=== PATIENT | female | born 1970 | race American Indian/Alaskan Native ===

== ENCOUNTER 2021-01-19 20:33 | Inpatient (IN) | payer OTHER ==
--- NOTE | 2021-01-19 21:48 | Event Note ---
ED Screening Note ED Screening Note: EPIGASTRIC AND RUQ PAIN ETOH DAILY This initial assessment/diagnostic orders/clinical plan/treatment(s) is/are subject to change based on patients health status, clinical progression and re- assessment by fellow clinical providers in the ED. Further treatment and workup at subsequent clinical providers discretion. Patient/guardian urged not to elope from the ED as their condition may be serious if not clinically assessed and managed. Initial orders include: LABS UA
[2021-01-19 22:07] LABS: Basophils # (Auto) 0.1 K/mm3 (0.0-0.1); Basophils % (Auto) 0.8 % (0.0-1.8); Eosinophils # (Auto) 0.1 K/mm3 (0.0-0.4); Eosinophils % (Auto) 1.5 % (0.0-4.3); Hematocrit 43.5 % (30.3-42.9); Hemoglobin 15.4 gm/dl (10.1-14.3); Lymphocytes # (Auto) 2.3 K/mm3 (1.2-5.4); Lymphocytes % (Auto) 29.5 % (13.4-35.0); Mean Corpuscular HGB Conc 35 % (30-34); Mean Corpuscular Volume 101 fl (79-97); Monocytes # (Auto) 0.5 K/mm3 (0.0-0.8); Monocytes % (Auto) 6.4 % (0.0-7.3); Platelet Count 339 K/mm3 (140-440); Red Blood Count 4.32 M/mm3 (3.65-5.03); Red Cell Distribution Width 12.8 % (13.2-15.2)
[2021-01-19] MEDS ORDERED: SODIUM CHLORIDE 0.9% 1000 ML 1,000 ML IV ONE (22:08)
[2021-01-19 22:26] LABS: Alanine Aminotransferase 66 units/L (7-56); Albumin 4.7 g/dL (3.9-5); Blood Urea Nitrogen 6 mg/dL (7-17); Calcium 9.1 mg/dL (8.4-10.2); Hemolysis Index 12
[2021-01-19 22:28] LABS: BUN/Creatinine Ratio 10; Bilirubin,Direct < 0.2 mg/dL (0-0.2)
[2021-01-19] MEDS ORDERED: DICYCLOMINE 20 MG/2 ML INJ IM ONE (23:03)
[2021-01-19] MEDS ORDERED: fentaNYL 100 MCG/2 ML INJ IV ONE (23:03)
[2021-01-19] MEDS ORDERED: ONDANSETRON 4 MG/2 ML INJ IV ONE (23:03)
--- NOTE | 2021-01-19 23:07 | Emergency Department Report ---
HPI - General Chief Complaint: Abdominal Pain Time Seen by Provider: 01/19/21 21:45 - HPI HPI: Room 22 The patient is a 50-year-old female present with a chief complaint of abdominal pain. Patient states for the past 2 weeks she has had intermittent epigastric abdominal pain rating to her back. Patient denies nausea/vomiting or diarrhea. Patient denies history of fever dysuria or hematuria. Patient gives her pain a score of 8/10. ED Past Medical Hx - Past Medical History Previous Medical History?: Yes Additional medical history: hypoglycemia - Surgical History Past Surgical History?: No - Family History Family history: no significant - Social History Smoking Status: Current Every Day Smoker Substance Use Type: None (Denies illicit drug use), Alcohol (Drinks beer 6 times a week) - Medications Home Medications: Home Medications Medication Instructions Recorded Confirmed Last Taken Type Cyclobenzaprine [Flexeril 10mg] 10 mg PO TID PRN #30 tablet 10/19/14 Unknown Rx HYDROcodone/APAP 5-325 [[place] 1 each PO Q6HR PRN #20 tablet 10/19/14 Unknown Rx 5/325] Ibuprofen [Motrin] 600 mg PO Q8H PRN #40 tablet 10/19/14 Unknown Rx ED Review of Systems ROS: Stated complaint: STOMACH PAIN Other details as noted in HPI Constitutional: denies: fever Eyes: denies: eye pain ENT: denies: throat pain Respiratory: no symptoms reported Cardiovascular: denies: chest pain Endocrine: no symptoms reported Gastrointestinal: abdominal pain. denies: nausea, vomiting, diarrhea Genitourinary: denies: dysuria, hematuria Musculoskeletal: back pain Neurological: denies: headache Physical Exam - Physical Exam Vital Signs: Vital Signs 01/19/21 21:42 Temperature 98.2 F Pulse Rate 110 H Respiratory 18 Rate Blood Pressure 141/93 O2 Sat by Pulse 98 Oximetry Physical Exam: GENERAL: The patient is well-developed well-nourished female lying on stretcher not appearing to be in acute distress. [] HEENT: Normocephalic. Atraumatic. Extraocular motions are intact. Patient has moist mucous membranes. NECK: Supple. Trachea midline CHEST/LUNGS: Clear to auscultation. There is no respiratory distress noted. HEART/CARDIOVASCULAR: Regular. There is no tachycardia. There is no gallop rub or murmur. ABDOMEN: Abdomen is soft, with tenderness to palpation in epigastric region only. There is no rebound or guarding. Patient has normal bowel sounds. There is no abdominal distention. SKIN: There is no rash. There is no edema. There is no diaphoresis. NEURO: The patient is awake, alert, and oriented. The patient is cooperative. The patient has no focal neurologic deficits. The patient has normal speech MUSCULOSKELETAL: There is no evidence of acute injury. ED Course Vital Signs 01/19/21 21:42 Temperature 98.2 F Pulse Rate 110 H Respiratory 18 Rate Blood Pressure 141/93 O2 Sat by Pulse 98 Oximetry ED Medical Decision Making - Lab Data Result diagrams: 01/19/21 21:56 01/19/21 21:56 - Radiology Data Radiology results: report reviewed (CT abdomen pelvis), image reviewed (CT abdomen pelvis) [facility] [address] [place] [address] Cat Scan Report Signed Patient: LAUREN LYONS MR#: [id number] : 1970 Acct:[id number] Age/Sex: 50 / F ADM Date: 01/19/21 Loc: ED Attending Dr: Ordering Physician: JOSE FIELDS MD Date of Service: 01/19/21 Procedure(s): CT abdomen pelvis w con Accession Number(s): [id number] cc: JOSE FIELDS MD CT abdomen pelvis w con INDICATION / CLINICAL INFORMATION: Epigastric abdominal pain radiating to RIGHT sided back. TECHNIQUE: Axial CT imaging of abdomen and pelvis was obtained with IV contrast. Coronal and sagittal reformatted imaging obtained and reviewed. All CT scans at this location are performed using CT dose reduction for ALARA by means of automated exposure control. COMPARISON: None available. FINDINGS: CT abdomen with IV contrast demonstrates mild hepatic steatosis. The liver is otherwise unremarkable. Spleen, kidneys adrenal glands, and gallbladder all appear grossly unremarkable. No biliary dilatation. The pancreatic head is abnormal. The pancreatic head is mildly enlarged and there is surrounding inflammatory change. The appearance is consistent with acute pancreatitis. The pancreatic parenchyma enhances normally. Inflammation extends to involve the descending duodenum. CT pelvis with contrast demonstrates enlarged lobulated uterus consistent with uterine fibroids. There are a few calcifications within the uterine parenchyma. A 3 cm l eft ovarian cyst is noted. A normal appendix is present in the right lower quadrant. GI tract is normal. No free fluid. Visualized lung bases are clear. No acute significant osseous abnormality. IMPRESSION: 1. Findings consistent with acute pancreatitis primarily involving the pancreatic head region. No free fluid or peripancreatic abnormal fluid collection. 2. Mild hepatic steatosis. 3. Mildly enlarged myomatous uterus. 4. 3 cm left ovarian cyst. Signer Name: Hallie Danielle MD Signed: 01/20/2021 12:51 AM Workstation Name: [id number] Transcribed By: Dictated By: Hallie Danielle MD Electronically Authenticated By: Hallie Danielle MD Signed Date/Time: 01/20/2150 DD/ TD/TT: Print Cancel - Differential Diagnosis Peptic ulcer disease, gastritis, pancreatitis, biliary pancreatitis, cholel Critical care attestation.: If time is entered above; I have spent that time in minutes in the direct care of this critically ill patient, excluding procedure time. ED Disposition Clinical Impression: Acute abdominal pain, Acute pancreatitis Disposition: OP ADMIT IP TO THIS HOSP Is pt being admited?: Yes Does the pt Need Aspirin: No Condition: Fair Instructions: Abdominal Pain (ED) Time of Disposition: 01:27 (Hospitalist notified (Dr Elizabeth))
[2021-01-19 23:39] LABS: Bacteria,Urine 1+ /HPF (Negative); Bilirubin,Urine NEG (Negative); Blood,Urine SM (Negative); Color,Urine Straw (Yellow); Mucus,Urine FEW /HPF; Protein,Urine <15 mg/dL mg/dL (Negative); Urobilinogen,Urine < 2.0 mg/dL (<2.0)
[2021-01-19 23:51] LABS: HCG Qualitative,Urine Negative (Negative)
--- NOTE | 2021-01-20 00:56 | Cat Scan Report ---
CT abdomen pelvis w con INDICATION / CLINICAL INFORMATION: Epigastric abdominal pain radiating to RIGHT sided back. TECHNIQUE: Axial CT imaging of abdomen and pelvis was obtained with IV contrast. Coronal and sagittal reformatte d imaging obtained and reviewed. All CT scans at this location are performed using CT dose reduction for ALARA by means of automated exposure control. COMPARISON: None available. FINDINGS: CT abdomen with IV contrast demonstrates mild hepatic steatosis. The liver is otherwise unremarkable. Spleen, kidneys adrenal glands, and gallbladder all appear grossly unremarkable. No biliary dilatati on. The pancreatic head is abnormal. The pancreatic head is mildly enlarged and there is surrounding infl ammatory change. The appearance is consistent with acute pancreatitis. The pancreatic parenchyma enha nces normally. Inflammation extends to involve the descending duodenum. CT pelvis with contrast demonstrates enlarged lobulated uterus consistent with uterine fibroids. Ther e are a few calcifications within the uterine parenchyma. A 3 cm left ovarian cyst is noted. A normal appendix is present in the right lower quadrant. GI tract is normal. No free fluid. Visualized lung bases are clear. No acute significant osseous abnormality. IMPRESSION: 1. Findings consistent with acute pancreatitis primarily involving the pancreatic head region. No cynthia e fluid or peripancreatic abnormal fluid collection. 2. Mild hepatic steatosis. 3. Mildly enlarged myomatous uterus. 4. 3 cm left ovarian cyst. Signer Name: Hallie Daneille MD Signed: 01/20/2021 12:51 AM Workstation Name: [id number]
[2021-01-20] MEDS ORDERED: ACETAMINOPHEN 325 MG TAB PO PRN (01:45)
[2021-01-20] MEDS ORDERED: ONDANSETRON 4 MG/2 ML INJ IV PRN (01:45)
--- NOTE | 2021-01-20 01:56 | History and Physical Report ---
History of Present Illness Date of examination: 01/20/21 Date of admission: 01/20/21 01:27 Chief complaint: Abdominal pain History of present illness: 50-year-old -[place] female with no significant past medical history presenting to the emergency room today complaining of abdominal pain. Pain is said to be intermittent and has been going on for the past 2 weeks. Pain is more in the epigastric region. No no relieving or exacerbating factor. Patient denies any nausea vomiting, denies any diarrhea denies any constipation. She denies any fever or chills, no chest pain or shortness of breath. She denies any dysuria or hematuria. On a scale of 10 pain was about 8/10 in severity. Patient admits that she drinks alcohol almost on a daily basis. She is also a current daily smoker. Work-up in the emergency room today reveals elevated lipase of 110. CT of the abdomen was also consistent with acute pancreatitis primarily involving the pancreatic head. There is also mild hepatic steatosis, mildly enlarged myomatous uterus, 3 cm left ovarian cyst. Patient has been admitted with acute pancreatitis. Past History Past Medical History: other (Hypoglycemia) Past Surgical History: No surgical history Social history: smoking (Current daily smoker), alcohol abuse (Drinks alcohol almost on a daily basis) Family history: no significant family history Medications and Allergies Allergies Allergy/AdvReac Type Severity Reaction Status Date / Time No Known Allergies Allergy Unverified 10/19/14 10:11 Home Medications Medication Instructions Recorded Confirmed Last Taken Type Cyclobenzaprine [Flexeril 10mg] 10 mg PO TID PRN #30 tablet 10/19/14 Unknown Rx HYDROcodone/APAP 5-325 [[place] 1 each PO Q6HR PRN #20 tablet 10/19/14 Unknown Rx 5/325] Ibuprofen [Motrin] 600 mg PO Q8H PRN #40 tablet 10/19/14 Unknown Rx Active Meds: Active Medications Acetaminophen (Acetaminophen 325 Mg Tab) 650 mg PO Q4H PRN PRN Reason: Pain MILD(1-3)/Fever >100.5/MCDANIELS Enoxaparin Sodium (Enoxaparin 40 Mg/0.4 Ml Inj) 40 mg SUB-Q QDAY@2200 ROSA ISELA; Protocol Sodium Chloride (Nacl 0.9% 1000 Ml) 1,000 mls @ 150 mls/hr IV DIRECT ROSA ISELA Morphine Sulfate (Morphine 2 Mg/1 Ml Inj) 2 mg IV Q4H PRN PRN Reason: Pain, Moderate (4-6) Ondansetron HCl (Ondansetron 4 Mg/2 Ml Inj) 4 mg IV Q8H PRN PRN Reason: Nausea And Vomiting Sodium Chloride (Sodium Chloride 0.9% 10 Ml Flush Syringe) 10 ml IV BID ROSA ISELA Sodium Chloride (Sodium Chloride 0.9% 10 Ml Flush Syringe) 10 ml IV PRN PRN PRN Reason: LINE FLUSH Review of Systems Constitutional: no fever, no chills Ears, nose, mouth and throat: no nasal congestion, no sore throat Cardiovascular: no chest pain, no palpitations Respiratory: no cough, no shortness of breath Gastrointestinal: abdominal pain, no nausea, no vomiting, no diarrhea, no constipation, no heartburn Genitourinary Female: no pelvic pain, no flank pain, no dysuria, no hematuria Musculoskeletal: no neck pain, no low back pain Integumentary: no rash, no pruritis Neurological: no headaches, no confusion Psychiatric: no anxiety, no depression Endocrine: no polyphagia, no polydipsia, no polyuria, no nocturia Exam - Constitutional Vitals: Temp Pulse Resp BP Pulse Ox 98.2 F 110 H 18 141/93 98 01/19/21 21:42 01/19/21 21:42 01/19/21 21:42 01/19/21 21:42 01/19/21 21:42 General appearance: Present: no acute distress, well-nourished - EENT Eyes: Present: PERRL, EOM intact. Absent: scleral icterus ENT: hearing intact, clear oral mucosa, dentition normal - Neck Neck: Present: supple, normal ROM - Respiratory Respiratory effort: normal Respiratory: bilateral: CTA - Cardiovascular Rhythm: regular Heart Sounds: Present: S1 & S2. Absent: gallop, systolic murmur, diastolic mu rmur, rub, click - Extremities Extremities: no ischemia, pulses intact, pulses symmetrical, No edema, normal temperature, normal color, Full ROM Peripheral Pulses: within normal limits - Abdominal General gastrointestinal: Present: soft, tender (Mild epigastric tenderness, no guarding and no rebound tenderness), non-distended, normal bowel sounds - Integumentary Integumentary: Present: clear, warm, dry. Absent: rash - Musculoskeletal Musculoskeletal: strength equal bilaterally - Psychiatric Psychiatric: appropriate mood/affect, intact judgment & insight, memory intact, cooperative - Neurologic Neurologic: CNII-XII intact, no focal deficits, moves all extremities Results - Labs CBC & Chem 7: 01/19/21 21:56 06 21:56 Labs: Abnormal lab results 01/19/21 06 Range/Units 21:56 21:56 Hgb 15.4 H (10.1-14.3) gm/dl Hct 43.5 H (30.3-42.9) % MCV 101 H (79-97) fl MCH 36 H (28-32) pg MCHC 35 H (30-34) % RDW 12.8 L (13.2-15.2) % Sodium 136 L (137-145) mmol/L Chloride 97.9 L (98-107) mmol/L Carbon Dioxide 21 L (22-30) mmol/L BUN 6 L (7-17) mg/dL AST 53 H (5-40) units/L ALT 66 H (7-56) units/L Lipase 110 H (13-60) units/L Assessment and Plan - Patient Problems (1) Acute pancreatitis Current Visit: Yes Status: Acute Plan to address problem: Patient admitted and placed on IV fluid and IV analgesic medication. Patient was placed n.p.o. meanwhile. Consult placed to gastroenterology for evaluation and recommendations. (2) Acute abdominal pain Current Visit: Yes Status: Acute Plan to address problem: Probably secondary to the pancreatitis. We will continue on IV analgesic medication. (3) Alcohol abuse Current Visit: Yes Status: Acute Plan to address problem: Patient counseled on quitting alcohol abuse. We will place on CIWA protocol. (4) Tobacco abuse Current Visit: Yes Status: Acute Plan to address problem: Patient counseled on quitting tobacco abuse. We will offer nicotine patch as needed. (5) DVT prophylaxis Current Visit: Yes Status: Acute Plan to address problem: Patient placed on subcutaneous Lovenox. (6) Full code status Current Visit: Yes Status: Acute Plan to address problem: Patient is a full code.
[2021-01-20] MEDS: SODIUM CHLORIDE 0.9% 1000 ML 1,000 ML IV SCH ×3 (03:27→17:45)
[2021-01-20] MEDS: MORPHINE 2 MG/1 ML INJ IV PRN ×5 (03:28→21:36)
--- NOTE | 2021-01-20 12:31 | Event Note ---
Date: 01/20/21 Patient seen and examined continue supportive care. No new complaints at this time. Still with abdominal pain. 02/19 in intensity.
--- NOTE | 2021-01-20 13:53 | Gastroenterology Consultation ---
History of Present Illness - Reason for Consult Consult date: 01/20/21 Pancreatitis Requesting physician: JUAN LI - History of Present Illness This is a pleasant 50-year-old female no significant medical history presents for severe epigastric pain she reports persistent progressing over the last 2 weeks. The pain is currently constant epigastric severe radiating to the back associated with nausea Patient does report drinking significant amounts of alcohol she reports a 30 pack of beer cans will only last for 3 days Patient denies history of pancreatitis in the past denies alcohol related disease in the past She does report smoking daily Patient's was present in the bed with her. Obtained/updated/reviewed patient's current medications Past History Past Medical History: other (Hypoglycemia) Past Surgical History: No surgical history Social history: smoking (Current daily smoker), alcohol abuse (Drinks alcohol almost on a daily basis) Family history: no significant family history Medications and Allergies Allergies Allergy/AdvReac Type Severity Reaction Status Date / Time No Known Allergies Allergy Unverified 10/19/14 10:11 Home Medications Medication Instructions Recorded Confirmed Last Taken Type Cyclobenzaprine [Flexeril 10mg] 10 mg PO TID PRN #30 tablet 10/19/14 01/20/21 Unknown Rx HYDROcodone/APAP 5-325 [[place] 1 each PO Q6HR PRN #20 tablet 10/19/14 01/20/21 Unknown Rx 5/325] Ibuprofen [Motrin] 600 mg PO Q8H PRN #40 tablet 10/19/14 01/20/21 01/11/21 Rx Active Meds: Active Medications Acetaminophen (Acetaminophen 325 Mg Tab) 650 mg PO Q4H PRN PRN Reason: Pain MILD(1-3)/Fever >100.5/MCDANIELS Enoxaparin Sodium (Enoxaparin 40 Mg/0.4 Ml Inj) 40 mg SUB-Q QDAY@2200 ROSA ISELA; Protocol Sodium Chloride (Nacl 0.9% 1000 Ml) 1,000 mls @ 150 mls/hr IV DIRECT ROSA ISELA Last Admin: 01/20/21 10:29 Dose: 150 mls/hr Documented by: Morphine Sulfate (Morphine 2 Mg/1 Ml Inj) 2 mg IV Q4H PRN PRN Reason: Pain, Moderate (4-6) Last Admin: 01/20/21 13:28 Dose: 2 mg Documented by: Ondansetron HCl (Ondansetron 4 Mg/2 Ml Inj) 4 mg IV Q8H PRN PRN Reason: Nausea And Vomiting Sodium Chloride (Sodium Chloride 0.9% 10 Ml Flush Syringe) 10 ml IV BID ROSA ISELA Last Admin: 01/20/21 10:28 Dose: 10 ml Documented by: Sodium Chloride (Sodium Chloride 0.9% 10 Ml Flush Syringe) 10 ml IV PRN PRN PRN Reason: LINE FLUSH Review of Systems - Review of Systems All systems: negative (10 systems reviewed and negative except as mentioned above in the history of present illness) Exam - Constitutional Vital Signs: Temp Pulse Resp BP Pulse Ox 98.0 F 71 18 120/86 96 01/20/21 11:00 01/20/21 11:00 01/20/21 11:00 01/20/21 11:00 01/20/21 11:00 General appearance: no acute distress - EENT Eyes: EOM intact - Neck Neck: supple - Respiratory Respiratory effort: normal - Cardiovascular Rhythm: regular - Gastrointestinal General gastrointestinal: Present: soft, tender - Integumentary Integumentary: Present: dry - Neurologic Neurological: alert and oriented x3 - Psychiatric Psychiatric: appropriate mood/affect - Labs CBC & Chem 7: 01/19/21 21:56 01/19/21 21:56 Lab Results: Laboratory Results - last 24 hr 01/19/21 01/19/21 01/19/21 21:56 21:56 23:26 WBC 7.9 RBC 4.32 Hgb 15.4 H Hct 43.5 H MCV 101 H MCH 36 H MCHC 35 H RDW 12.8 L Plt Count 339 Lymph % (Auto) 29.5 Wilkes % (Auto) 6.4 Eos % (Auto) 1.5 Baso % (Auto) 0.8 Lymph # (Auto) 2.3 Wilkes # (Auto) 0.5 Eos # (Auto) 0.1 Baso # (Auto) 0.1 Seg Neutrophils % 61.8 Seg Neutrophils # 4.9 Sodium 136 L Potassium 4.2 Chloride 97.9 L Carbon Dioxide 21 L Anion Gap 21 BUN 6 L Creatinine 0.6 Estimated GFR > 60 BUN/Creatinine Ratio 10 Glucose 94 Calcium 9.1 Total Bilirubin 0.30 Direct Bilirubin < 0.2 Indirect Bilirubin 0.1 AST 53 H ALT 66 H Alkaline Phosphatase 124 Total Protein 7.9 Albumin 4.7 Albumin/Globulin Ratio 1.5 Lipase 110 H Urine Color Straw Urine Turbidity Clear Urine pH 5.0 Ur Specific [place] 1.003 Urine Protein <15 mg/dl Urine Glucose (UA) Neg Urine Ketones Neg Urine Blood Sm Urine Nitrite Neg Urine Bilirubin Neg Urine Urobilinogen < 2.0 Ur Leukocyte Esterase Neg Urine WBC (Auto) 2.0 Urine RBC (Auto) 3.0 U Epithel Cells (Auto) 2.0 Urine Bacteria (Auto) 1+ Urine Mucus Few Urine HCG, Qual Negative Assessment and Plan Clinically this is most consistent with acute alcohol related pancreatitis, low in the differential diagnosis is pancreatic mass, gallstone related disease, etc. based upon imaging results Continue pain management as well as aggressive hydration I discussed with the patient alcohol cessation and tobacco cessation We will continue to follow with you daily - Patient Problems (1) Acute pancreatitis Current Visit: Yes Status: Acute (2) Alcohol abuse Current Visit: Yes Status: Acute
[2021-01-20] MEDS ORDERED: ENOXAPARIN 40 MG/0.4 ML INJ SUB-Q SCH (22:00)
[2021-01-21] MEDS: SODIUM CHLORIDE 0.9% 1000 ML 1,000 ML IV SCH ×2 (01:03→09:35)
[2021-01-21 06:06] LABS: Basophils % (Auto) 0.8 % (0.0-1.8); Eosinophils # (Auto) 0.1 K/mm3 (0.0-0.4); Eosinophils % (Auto) 1.5 % (0.0-4.3); Hematocrit 38.8 % (30.3-42.9); Hemoglobin 13.2 gm/dl (10.1-14.3); Lymphocytes # (Auto) 1.8 K/mm3 (1.2-5.4); Lymphocytes % (Auto) 38.2 % (13.4-35.0); Mean Corpuscular HGB Conc 34 % (30-34); Mean Corpuscular Volume 101 fl (79-97); Monocytes # (Auto) 0.3 K/mm3 (0.0-0.8); Monocytes % (Auto) 6.3 % (0.0-7.3); Platelet Count 280 K/mm3 (140-440); Red Blood Count 3.86 M/mm3 (3.65-5.03); Red Cell Distribution Width 12.7 % (13.2-15.2)
[2021-01-21 06:16] LABS: INR 0.96 (0.87-1.13)
[2021-01-21 06:20] LABS: Alanine Aminotransferase 35 units/L (7-56); Albumin 3.9 g/dL (3.9-5); Blood Urea Nitrogen 6 mg/dL (7-17); Calcium 8.8 mg/dL (8.4-10.2); Hemolysis Index 1
[2021-01-21 06:30] LABS: BUN/Creatinine Ratio 9
[2021-01-21 06:36] VITALS: BP 125/73
--- NOTE | 2021-01-21 09:01 | Gastroenterology Progress Note ---
Assessment and Plan Clinically this is most consistent with acute alcohol related pancreatitis, patient improving rapidly I am advancing her diet From GI standpoint as long as she tolerates her diet she can be discharged with outpatient follow-up with me I reviewed with her again in detail alcohol cessation education Regarding the chest pressure may be simply gas related I recommended she walk around and see if that can move the gas and help her to feel better. I told her however if the chest pain starts worsening with exertion she should tell her itzel se immediately GI will sign off please call back if we can be of any further assistance - Patient Problems (1) Acute pancreatitis Current Visit: Yes Status: Acute (2) Alcohol abuse Current Visit: Yes Status: Acute Subjective Date of service: 01/21/21 Principal diagnosis: Pancreatitis Interval history: Patient reports her abdominal pain is continuing to improve and is now only for out of 10 Epigastric Radiating to the back She reports some gas-like chest fullness that radiates to her back this morning Objective - Constitutional Vitals: Temp Pulse Resp BP Pulse Ox 97.7 F 55 L 20 125/73 95 01/21/21 04:43 01/21/21 04:43 01/21/21 08:00 01/21/21 04:43 01/21/21 08:00 General appearance: no acute distress - EENT Eyes: EOM intact - Neck Neck: supple - Respiratory Respiratory effort: normal - Gastrointestinal General gastrointestinal: Present: soft, other (Mildly tender to palpation epigastric) - Labs CBC & Chem 7: 01/21/21 05:00 01/21/21 05:00 Labs: Laboratory Results - last 24 hr 01/21/21 01/21/21 01/21/21 05:00 05:00 05:00 WBC 4.7 RBC 3.86 Hgb 13.2 Hct 38.8 MCV 101 H MCH 34 H MCHC 34 RDW 12.7 L Plt Count 280 Lymph % (Auto) 38.2 H Butts % (Auto) 6.3 Eos % (Auto) 1.5 Baso % (Auto) 0.8 Lymph # (Auto) 1.8 Butts # (Auto) 0.3 Eos # (Auto) 0.1 Baso # (Auto) 0.0 Seg Neutrophils % 53.2 Seg Neutrophils # 2.5 PT 13.4 INR 0.96 Sodium Potassium Chloride Carbon Dioxide Anion Gap BUN Creatinine Estimated GFR BUN/Creatinine Ratio Glucose Calcium Total Bilirubin AST ALT Alkaline Phosphatase Total Protein Albumin Albumin/Globulin Ratio Lipase 117 H 01/21/21 05:00 WBC RBC Hgb Hct MCV MCH MCHC RDW Plt Count Lymph % (Auto) Butts % (Auto) Eos % (Auto) Baso % (Auto) Lymph # (Auto) Butts # (Auto) Eos # (Auto) Baso # (Auto) Seg Neutrophils % Seg Neutrophils # PT INR Sodium 138 Potassium 4.0 Chloride 103.3 Carbon Dioxide 24 Anion Gap 15 BUN 6 L Creatinine 0.7 Estimated GFR > 60 BUN/Creatinine Ratio 9 Glucose 81 Calcium 8.8 Total Bilirubin 0.50 AST 27 ALT 35 Alkaline Phosphatase 87 Total Protein 6.5 Albumin 3.9 Albumin/Globulin Ratio 1.5 Lipase
[2021-01-21] MEDS: MORPHINE 2 MG/1 ML INJ IV PRN (09:35)
--- NOTE | 2021-01-21 11:36 | Discharge Summary ---
Providers - Providers Date of Admission: 01/20/21 01:27 Attending physician: NIKKI PALACIOS MD 01/20/21 01:45 Consult to Physician [CONS] Routine Comment: Consulting Provider: BELLA VELA Physician Instructions: Reason For Exam: ACUTE PANCREATITIS Primary care physician: TREADLE CUT OFF SAW OPERATOR Hospitalization Reason for admission: abdominal pain Condition: Fair Hospital course: 50-year-old -[place]ish female with no significant past medical history presenting to the emergency room today complaining of abdominal pain. Pain is s aid to be intermittent and has been going on for the past 2 weeks. Pain is more in the epigastric region. No no relieving or exacerbating factor. Patient denies any nausea vomiting, denies any diarrhea denies any constipation. She denies any fever or chills, no chest pain or shortness of breath. She denies any dysuria or hematuria. On a scale of 10 pain was about 8/10 in severity. Patient admits that she drinks alcohol almost on a daily basis. She is also a current daily smoker. Work-up in the emergency room today reveals elevated lipase of 110. CT of the abdomen was also consistent with acute pancreatitis primarily involving the pancreatic head. There is also mild hepatic steatosis, mildly enlarged myomatous uterus, 3 cm left ovarian cyst. Patient has been admitted with acute pancreatitis. During evaluation the patient was seen by GI physician who recommended an outpatient follow-up for colon cancer screening. The patient this morning show some improvement I did have extensive discussion with her about her alcohol use and general preventive measures related to healthcare we spent about 20 minutes discussing this. She verbalized understanding. She is tolerating her diet and this morning soft GI diet. She understands to stay with his diet for few more days prior to advancing. Tobacco cessation counseling was also discussed in detail (1) Acute pancreatitis Current Visit: Yes Status: Acute Plan to address problem: Patient admitted and placed on IV fluid and IV analgesic medication. Patient was placed n.p.o. meanwhile. Consult placed to gastroenterology for evaluation and recommendations. (2) Acute abdominal pain Current Visit: Yes Status: Acute Plan to address problem: Probably secondary to the pancreatitis. We will continue on IV analgesic medication. (3) Alcohol abuse Current Visit: Yes Status: Acute Plan to address problem: Patient counseled on quitting alcohol abuse. We will place on CIWA protocol. (4) Tobacco abuse Current Visit: Yes Status: Acute Plan to address problem: Patient counseled on quitting tobacco abuse. We will offer nicotine patch as needed. Disposition: DC-01 TO HOME OR SELFCARE Final Discharge Diagnosis (Prints w/discharge instructions): Acute alcoholic pancreatitis Time spent for discharge: 35-minute Core Measure Documentation - Palliative Care Palliative Care/ Comfort Measures: Not Applicable - Core Measures Any of the following diagnoses?: none Exam - Physical Exam Narrative exam: VITAL SIGNS: Reviewed. GENERAL: The patient appears normally developed, Vital signs as documented. HEAD: No signs of head trauma. EYES: Pupils are equal. Extraocular motions intact. EARS: Hearing grossly intact. MOUTH: Oropharynx is normal. NECK: No adenopathy, no JVD. CHEST: Chest with clear breath sounds bilaterally. No wheezes, rales, or rhonchi. CARDIAC: Regular rate and rhythm. S1 and S2, without murmurs, gallops, or rubs. VASCULAR: No Edema. Peripheral pulses normal and equal in all extremities. ABDOMEN: Soft, non tender and non distended. No rebound or guarding, and no masses palpated. Bowel Sounds normal. MUSCULOSKELETAL: Good range of motion of all major joints. Extremities without clubbing, cyanosis or edema. NEUROLOGIC EXAM: Alert and oriented x 3 No focal sensory or strength deficits. Speech normal. Follows commands. PSYCHIATRIC: Mood normal. SKIN: detail exam as documented in skin assessment - Constitutional Vitals: Temp Pulse Resp BP Pulse Ox 97.7 F 55 L 20 125/73 95 01/21/21 04:43 01/21/21 04:43 01/21/21 08:00 01/21/21 04:43 01/21/21 08:00 Plan Activity: advance as tolerated, up only with assistance Diet: low fat Special Instructions: record daily weights, record daily BP diary, smoking cessation, other (Alcohol use cessation discussed) Follow up with: PRIMARY CARE, [Primary Care Provider] - 7 Days KUSHAL VILLAGOMEZ MD [Staff Physician] - 7 Days Prescriptions: HYDROcodone/APAP 5-325 [[place] 5-325 mg TAB] 1 each PO Q6HR PRN #14 tablet PRN Reason: Pain
== END 2021-01-21 13:15 | disposition home or self-care (01) | DRG 440 ==
LOC: ED 20:33 → 3A 01-20 01:27
PROVIDERS: ADMIT Internal Medicine Geriatric Medicine; ATTEND Internal Medicine
DX: K85.20 Alcohol induced acute pancreatitis without necrosis or infection (principal); N83.202 Unspecified ovarian cyst, left side; F10.10 Alcohol abuse, uncomplicated; F17.200 Nicotine dependence, unspecified, uncomplicated; Z71.6 Tobacco abuse counseling; Z79.899 Other long term (current) drug therapy
CPT/HCPCS: 36415; 74177; 80048; 80053; 80076; 81001; 81025; 83690; 85025; 85610; 96361; 96372; 96374; 96375; G0378; J0500; J1650; J2270; J2405; J3010; J7030; Q9967